=== PATIENT | male | born 1970 | race African-American/Black ===

== ENCOUNTER 2025-06-29 12:05 | Emergency (ER) | payer BC, SELFPAY ==
[2025-06-29 12:07] VITALS: BP 134/101
--- NOTE | 2025-06-29 12:40 | ED.GENMED ---
History of Present Illness
<LUIS Tran - Last Filed: 06/29/25 18:51>
General
Chief Complaint: Skin Problem
Source: patient
Exam Limitations: none
Time Seen by Provider: 06/29/25 12:28
Nursing documentation reviewed up to this point in time: agreed with
History of Present Illness
History of Present Illness:
Patient is a 55year-old male with past medical history of hypertension sleep apnea asthma presents to the ER for evaluation yesterday afternoon patient started with itching across his upper abdomen and at 2 AM he noticed blistering and open wound to
the area. He denies any fevers he does not feel ill. He denies any other sores to different body parts. He does report he took a long drive to [place] which was approximately 8 hours both Sunday and Sunday and he does wear his pants very
high at the site of the blistering/open sores.
He denies any new soaps lotions detergents. He denies any new medicines.
Past History
<LUIS Tran - Last Filed: 06/29/25 18:51>
Past History
ED Past Medical History: None
ED Past Surgical History: None
Phy Exam
<LUIS Tran - Last Filed: 06/29/25 18:51>
General Physical Exam
General Presentation: no apparent distress
General age: appears stated age
General Skin: warm and dry
General Habitus: normal
General Mental: alert
General Hydration: appears well hydrated
Gastrointestinal Exam
Gastrointestinal Exam: non tender, soft and other (Upper abdomen with blister/area of skin excoriation very minimally red no drainage )
Neurological Exam
Neurological Exam: alert and oriented x3
Musculoskeletal Exam
Musculoskeletal Exam: full ROM
Skin Exam
Skin Exam: normal color, warm/dry and other (Patient with scattered blistering open wound to upper abdomen, minimal redness )
Psychiatric Exam
Psychiatric Exam: normal mood/affect
Course
<LUIS Tran - Last Filed: 06/29/25 18:51>
Orders/Labs/Results
Orders:
Orders
06/29/25 13:29
Cephalexin Monohydrate [Keflex] 500 mg PO NOW STA
Vital Signs
Initial and Last Documented VS:
Initial Vital Signs
Temp Pulse Resp BP Pulse Ox
97.9 F 61 16 134/101 98
06/29/25 12:07 06/29/25 12:07 06/29/25 12:07 06/29/25 12:07 06/29/25 12:07
Last Documented Vital Signs
Temp Pulse Resp BP Pulse Ox
97.9 F 61 16 141/79 98
06/29/25 12:07 06/29/25 12:07 06/29/25 12:07 06/29/25 13:16 06/29/25 12:41
Ophthalmic Medical Technician consulted with Physician
Ophthalmic Medical Technician consulted with physician?: Yes
Name of Physician Consulted: Keanu
<Jeremy Colunga MD - Last Filed: 06/29/25 19:45>
Orders/Labs/Results
Orders:
Orders
06/29/25 13:29
Cephalexin Monohydrate [Keflex] 500 mg PO NOW STA
Vital Signs
Initial and Last Documented VS:
Initial Vital Signs
Temp Pulse Resp BP Pulse Ox
97.9 F 61 16 134/101 98
06/29/25 12:07 06/29/25 12:07 06/29/25 12:07 06/29/25 12:07 06/29/25 12:07
Last Documented Vital Signs
Temp Pulse Resp BP Pulse Ox
97.9 F 61 16 141/79 98
06/29/25 12:07 06/29/25 12:07 06/29/25 12:07 06/29/25 13:16 06/29/25 12:41
<LUIS Tran - Last Filed: 06/29/25 18:51>
MDM/Problems Addressed
Differential Diagnosis Includes:
Not limited to skin excoriation, superficial burn, skin irritation, contact dermatitis, cellulitis
MDM/Problems Addressed:
Patient with wound/blister to upper abdomen at the site where he normally wears his pants. He reports 2 very [address] drives to an [place] which are over 8 to 9 hours each. He does report at that time his pants were sitting at this area. This
is likely from that rubbing on the surface of his skin. He denies any fever chills no other areas of skin breakdown or blistering. No fevers he is nontoxic and well-appearing.
Case discussed with Dr. Colunga who evaluated patient.
Will DC on Keflex though does not look infected at this time however will DC to prevent infection.
I did discuss with wound center Dr. Cespedes will have follow up in office.
Chronic conditions affecting care:
htn
<LUIS Tran - Last Filed: 06/29/25 18:51>
*Pulse Oximetry
SaO2: 98
Oxygen Mode of Delivery: Room air
Patient hypoxic: no
*Critical Care Note
Total Time (30-74mins, 75-104mins- exclusive of procedures): Not Applicable
ED Attending Note
<LUIS Tran - Last Filed: 06/29/25 18:51>
-
Portions of this chart may have been created with voice recognition software.� Occasional wrong word or��sound alike� substitutions may have occurred due to the inherent limitations of voice recognition software.
<Jeremy Colunga MD - Last Filed: 06/29/25 19:45>
ED Attending Note
Patient seen and examined by attending physician: Yes
ED Attending Note:
Patient presents to ED secondary to 2-day history of blister along with ruptured blister along his upper abdomen. 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 Since
then, blister has ruptured with some rupturing. Denies fever or chills. Denies nausea or vomiting. Denies direct trauma. Denies change in medications, soap, detergent or any topical ointments. Denies previous history of similar symptoms.
Physical Exam
General: no apparent distress, not acutely ill. afebrile
Head: nc/at. eomi
Neck: supple. normal range of motion
Abdomen: normal bowel sounds. multiple clear fluid filled blisters noted along upper abdomen with some having ruptured with superficial ulceration, with mild tenderness to palpation. no open drainage
Neuro: alert and oriented x 3. no focal neurological deficits
Skin: no rash
Psychiatric: well kept. interactive and cooperative
Extremities: no edema. no calf tenderness.
History and exam concerning for nonspecific blister formation with rupture. Findings concerning for potential allergic reaction versus dermatitis versus acute trauma. Patient will be treated for potential superficial burn with wound care along
with full course of antibiotics. However, in light of patient's unclear etiology, strongly recommended that patient follow-up with burn center at [facility] for reevaluation.
Discharge Plan
Departure
Patient Disposition: Home (Routine Discharge)
Date of Disposition: 06/29/25
Time of Disposition: 13:31
Patient with high blood pressure during this ER visit?: Yes
Covid-19: Not Applicable
Discharge Problem:
Blister
Instructions: Blisters, BLOOD PRESSURE
Prescriptions:
New
cephalexin 500 mg capsule
500 mg PO Q6H Qty: 28 0RF
No Action
prednisone 20 MG tablet
40 mg PO DAILY Qty: 10 0RF
Referrals:
UNKNOWN - PT DOES,NOT KNOW [Family Provider]
[facility] [[facility]]
Activity Restrictions/Additional Instructions:
As discussed wash area twice a day with soap and water pat dry and apply nonstick dressing to the area you may apply small amount of antibiotic ointment to the open wound. Antibiotics as directed every 6 hours for the next week.
Follow-up with wound center in the next 2-3 days for reevaluation wound check. Please call today to make an appointment. Return if any worsening of symptoms of increased pain swelling redness drainage fever chills.
Interventions
Interventions:
*Risk Screen - Suicide Last Done: 06/29/25 12:07
*General Assessment Last Done: 06/29/25 13:20
*Neglect/Abuse Screening Last Done: 06/29/25 12:07
*ED- Fall Risk Assessment Last Done: 06/29/25 13:44
*ED COVID-19 Vaccine History Last Done: 06/29/25 13:44
*ED Influenza Vaccine History Last Done: 06/29/25 13:44
*Nursing Disposition Last Done: 06/29/25 13:43
ED-Skin Assessment Last Done: 06/29/25 13:05
Discharge Date and Time
Discharge Date/Time: 06/29/25 13:44
Print Language: GERMAN
[2025-06-29 13:16] VITALS: BP 141/79
[2025-06-29] MEDS: KEFLEX 500 MG PO (13:40)
== END 2025-06-29 13:44 | disposition home or self-care (01) ==
LOC: EMR 12:05
PROVIDERS: EMERGENCY PHYSICIAN Emergency Medicine
DX: S30.821A Blister (nonthermal) of abdominal wall, initial encounter (principal); X58.XXXA Exposure to other specified factors, initial encounter; I10 Essential (primary) hypertension; G47.30 Sleep apnea, unspecified
CPT/HCPCS: 99282